=== PATIENT | male | born 1965 | race African-American/Black ===

== ENCOUNTER → 2018-05-06 | Outpatient (CLI) | payer MEDICARE | LOC: RAD 09:49 | PROVIDERS: ATTEND Family Medicine | DX: R60.1 Generalized edema (principal) | CPT/HCPCS: 93971 ==

== ENCOUNTER → 2018-11-18 | Outpatient (CLI) | payer MEDICARE ==
--- NOTE | 2018-11-18 10:25 | Diagnostic Imaging Report ---
PROCEDURE:US ABDOMEN LIMITED COMPARISON:None. INDICATIONS:RIGHT UPPER QUADRANT TECHNIQUE: Murray-scale and color doppler transverse and longitudinal images of the right upper quadrant of the abdomen were obtained. FINDINGS: Liver: 16.2 cm in length in the right midclavicular line. Normal parenchymal echogenicity. No mass. Main portal vein: 1.0 cm in caliber. Hepatopedal flow. Gallbladder: No shadowing calculus, wall thickening, or pericholecystic fluid. Common Bile Duct: 0.3 cm in caliber. Sonographic Brown's sign: Reported as negative. Right kidney: 13.7 cm. Normal renal cortical echogenicity. 1.2 x 1.1 x 0.8 cm round, anechoic simple cyst in the interpolar region. No solid masses or hydronephrosis. Pancreas: Poorly visualized secondary to overlying bowel gas. Inferior vena cava: Poorly visualized secondary to overlying bowel gas. Aorta: Poorly visualized secondary to overlying bowel gas. Non-aneurysmal proximally. Ascites: None in the right upper quadrant of the abdomen. CONCLUSION: Simple right renal cyst. Poor visualization of midline structures secondary to overlying bowel gas. Otherwise unremarkable right upper quadrant ultrasound. No cholelithiasis or sonographic findings of acute cholecystitis. Dictated by: Grabiel Zamorano M.D. on 11/18/2018 at 10:36 Electronically approved by: Grabiel Zamorano M.D. on 11/18/2018 at 10:36
== END ==
LOC: US 08:01
PROVIDERS: ATTEND Family Medicine
DX: R10.11 Right upper quadrant pain (principal)
CPT/HCPCS: 76705

== ENCOUNTER → 2019-03-15 | Outpatient (CLI) | payer MEDICARE ==
--- NOTE | 2019-03-15 17:44 | Diagnostic Imaging Report ---
History: Left facial numbness Comparison studies: None Technique: Axial images were obtained from the skull base to the vertex. Coronal and sagittal reconstructions obtained from the axial data. Dose modulation, iterative reconstruction, and/or weight based adjustment of the mA/kV was utilized to reduce the radiation dose to as low as reasonably achievable. Intravenous contrast: None Findings: Scalp/skull: No abnormalities. No fractures, blastic or lytic lesions. Extra-axial spaces: No masses. No fluid collections. Brain sulci: Appropriate for age. Ventricles: Normal in size and configuration. No hydrocephalus. Parenchyma: No abnormal densities. No masses, hemorrhage, acute or chronic cortical vascular insults. Sellar/suprasellar region: No abnormalities Craniocervical junction: Patent foramen magnum. No Chiari one malformation. Incidental finding: Partially collapsed, deformed left globe. Atherosclerotic calcifications in the carotid siphons. IMPRESSION: No intracranial abnormalities. Signed by: Dr. Nazario Brito M.D. on 03/15/2019 5:40 PM
== END ==
LOC: CT 17:02
PROVIDERS: ATTEND Family Medicine
DX: R20.0 Anesthesia of skin (principal); Z86.73 Personal history of transient ischemic attack (TIA), and cerebral infarction without residual deficits
CPT/HCPCS: 70450

== ENCOUNTER → 2020-08-16 | Outpatient (CLI) | payer MEDICARE ==
--- NOTE | 2020-08-16 14:46 | Diagnostic Imaging Report ---
EXAM: Complete Abdominal Ultrasound INDICATION: Right upper quadrant pain. Abdominal pain. ^RIGHT UPPER QUADRANT ABDOMINAL PAIN COMPARISON: November 18, 2016 TECHNIQUE: Transverse and longitudinal images of the upper abdomen were obtained. FINDINGS: Liver: Size: 15.1 cm in the right midclavicular line, normal Appearance: Normal echogenicity, smooth contour Mass: No focal masses Spleen: Size: 9.9 cm in length, normal Echogenicity: Normal Mass: No focal masses Gallbladder: Stones/Sludge: Multiple small gallstones in the dependent portion of the gallbladder Wall: 0.3 cm Appearance: No wall thickening, pericholecystic fluid or hydrops. Sonographic Brown's Sign: Negative Bile Ducts: Intrahepatic Ducts: No dilatation Extrahepatic Ducts: Common bile duct measures 0.3 cm, no dilatation Pancreas: Not well seen Kidneys: Length: Right 12.0 cm Left 12.4 cm Echogenicity: Increased Collecting System: No hydronephrosis Stone: None Cyst/Mass: 1.9 x 2.1 x 1.9 cm simple appearing cyst in the superior left kidney. 2.8 x 1.7 x 2.1 cm simple appearing cyst in the mid left kidney. Vessels: Aorta: Not well seen Inferior Vena Cava: Visualized portions are normal Main Portal Vein: 1.2 cm, normal size with hepatopetal flow. Free Fluid: No ascites or pleural effusion IMPRESSION: Multiple small gallstones in the dependent portion of the gallbladder. No ductal dilatation. Increased cortical echogenicity in the kidneys could be due to chronic medical renal disease. Simple appearing left renal cysts. Pancreas and abdominal aorta not well seen. Signed by: Dr. Dennis Meredith M.D. on 08/16/2020 2:42 PM
== END ==
LOC: US 13:51
PROVIDERS: ATTEND Family Medicine
DX: R10.11 Right upper quadrant pain (principal); R11.0 Nausea
CPT/HCPCS: 76700